=== PATIENT | female | born 1935 | race Caucasian/White ===

== ENCOUNTER 2017-08-30 18:19 | Emergency (ER) | payer OTHER ==
[2017-08-30 18:29] VITALS: BP 155/107; PULSE 87; TEMP 97.6; BMI 23.6
--- NOTE | 2017-08-30 18:48 | PDOC ---
History of Present Illness - History of Present Illness Initial Comments: 08/30/17 18:56 The patient is an active 82 year old female, with a significant past medical history of broken left ankle (1 year ago), pelvic and collar bone fracture, who presents to the emergency department with left ankle injury. Patient states that she was getting up from the couch when her left ankle fell asleep, she started walking on it when she tripped and fell over. She states she heard a snapping noise. She states the pain is sharp, rates 6/10. She is able to ambulate. She denies recent fevers, chills, headache or dizziness. She denies recent nausea, vomit, diarrhea or constipation. She denies recent dysuria, frequency, urgency or hematuria. She denies recent chest pain or shortness of breath. Allergies: NKA Social history: Nonsmoker. Denies EtOH use and recreational drug use. <Meena Virgen - Last Filed: 08/30/17 19:02> <Manuel Armijo - Last Filed: 09/01/17 08:01> - General Chief Complaint: Injury Stated Complaint: LEFT ANKLE INJURY Time Seen by Provider: 08/30/17 18:48 Past History <Meena Virgen - Last Filed: 08/30/17 19:02> - Past Medical History COPD: No Other medical history: FRACTURE TO PELVIS,AND LEFT ANKLE - Suicide/Smoking/Psychosocial Hx Smoking History: Never smoked Information on smoking cessation initiated: No Hx Alcohol Use: No Drug/Substance Use Hx: No Substance Use Type: None <Manuel Armijo - Last Filed: 09/01/17 08:01> - Past Medical History Allergies/Adverse Reactions: Allergies Allergy/AdvReac Type Severity Reaction Status Date / Time No Known Allergies Allergy Verified 08/30/17 18:20 Home Medications: Ambulatory Orders NK [No Known Home Medication] 08/30/17 Review of Systems - Review of Systems Comments:: 08/30/17 18:57 CONSTITUTIONAL: Absent: fever, no chills, no fatigue EYES: Absent: visual changes ENT: Absent: ear pain, no sore throat CARDIOVASCULAR: Absent: chest pain, no palpitations RESPIRATORY: Absent: cough, no SOB GI: Absent: abdominal pain, no nausea, no vomiting, no constipation, no diarrhea GENITOURINARY: Absent: dysuria, no frequency, no hematuria MUSCULOSKELETAL: Present: left ankle pain Absent: back pain SKIN: Absent: rash <Meena Virgen - Last Filed: 08/30/17 19:02> *Physical Exam - Vital Signs Last Vital Signs Temp Pulse Resp BP Pulse Ox 97.6 F 87 18 155/107 99 08/30/17 18:20 08/30/17 18:20 08/30/17 18:20 08/30/17 18:20 08/30/17 18:20 - Physical Exam Comments: 08/30/17 19:02 GENERAL: Able to ambulate. Well-appearing, well-nourished. No apparent distress. HEENT: Normocephalic, atraumatic. PERRL, EOM intact. CARDIOVASCULAR: Normal S1, S2. Regular rate and rhythm. PULMONARY: Clear to auscultation bilaterally. ABDOMEN: Soft, non-distended, non-tender. EXTREMITIES: Mild swelling at lateral ligament of left ankle. No point tenderness of 5th metatarsal. No significant tenderness over malleli. Normal ROM in all four extremities. No gross deformities. SKIN: Warm, dry. No rash NEUROLOGICAL: No focal neurological deficits. <Meena Virgen - Last Filed: 08/30/17 19:02> - Vital Signs Last Vital Signs Temp Pulse Resp BP Pulse Ox 97.6 F 87 18 155/107 99 08/30/17 18:20 08/30/17 18:20 08/30/17 18:20 08/30/17 18:20 08/30/17 18:20 <Manuel Armijo - Last Filed: 09/01/17 08:01> Medical Decision Making - Medical Decision Making 09/01/17 08:00 X-rays negative except for minor soft tissue swelling. Examination showed no evidence of fracture. There is no point tenderness over the malleoli or fifth metatarsal, neurovascular was intact. Patient was ambulating well with only a slight suggestion of a limp. Ramos was applied, with no distal numbness or tingling and good toe motion, with good ambulation afterwards. Instructed to follow-up with orthopedics if pain or swelling persisted one-week. <Manuel Armijo - Last Filed: 09/01/17 08:01> *DC/Admit/Observation/Transfer - Attestations Scribe Attestion: 08/30/17 19:02 Documentation prepared by Meena Virgen, acting as medical assistant for Manuel Ag MD. <Meena Virgen - Last Filed: 08/30/17 19:02> - Discharge Dispostion Admit: No <Manuel Armijo - Last Filed: 09/01/17 08:01> Diagnosis at time of Disposition: Ankle sprain Qualifiers: Encounter type: initial encounter Involved ligament of ankle: tibiofibular ligament Laterality: left Qualified Code(s): S93.432A - Sprain of tibiofibular ligament of left ankle, initial encounter - Discharge Dispostion Disposition: HOME Condition at time of disposition: Stable - Referrals Referrals: Ramakrishna Abarca MD [Staff Physician] - 1 week - Patient Instructions Printed Discharge Instructions: DI for Ankle Sprain, How to Apply an Ramos Wrap Additional Instructions: Rest, ice, Ramos wrap, and Advil as needed. See orthopedist if pain or swelling persists one-week for further evaluation and treatment.
== END 2017-08-30 19:09 | disposition home or self-care (01) ==
LOC: FER 18:19
DX: S93.432A Sprain of tibiofibular ligament of left ankle, initial encounter (principal); W18.39XA Other fall on same level, initial encounter; Y93.89 Activity, other specified; Y92.9 Unspecified place or not applicable
CPT/HCPCS: 73610-TC-LT; 99281-25

== ENCOUNTER 2020-05-10 11:04 | Emergency (ER) | payer OTHER ==
[2020-05-10 11:09] VITALS: BP 157/92; PULSE 79; TEMP 98.1; BMI 22.9
[2020-05-10] MEDS ORDERED: ACETAMINOPHEN 325 MG TABLET (FP) PO ONE (11:18)
[2020-05-10] MEDS ORDERED: LIDOCAINE 5% TOPICAL PATCH TP ONE (11:18)
--- NOTE | 2020-05-10 11:18 | PDOC ---
History of Present Illness - General Chief Complaint: Rash Stated Complaint: RASH Time Seen by Provider: 05/10/20 11:11 History Source: Patient Exam Limitations: No Limitations - History of Present Illness Initial Comments: 05/10/20 11:21 HPI 85 YOF with h/o HTN, presenting with left sided axilla/lateral chest wall burning rash x 1 week. Pt describes the rash as painful, like "bee stings" that is nonexertional. Associated with sharp burning pain her left inner arm as well. had shingles shot 6 years ago. she had covid 19 and has donated convalescent plasma. no trauma. no insect stings. no infectious sx. Denies fever, chills, chest pain, SOB, palpitation, dizziness, weakness, N, V, D, abdominal pain, bladder and bowel problems, focal weakness/paresthesias, leg swelling/pain, rash. No sick contacts or travel. No new changes in medications. No suspicious food intake Allergies: None Past Medical History: HTN Social history: No tobacco, ETOH or drug use. Meds: olmesartan Family history: noncontributory PMD: Dr Campoverde Review of systems Constitutional: no fevers or chills. No weakness HEENT: no headache or dizziness. No congestion. No visual/hearing disturbances. CVS: no cp or syncope. Resp: no sob. No cough. Gastrointestinal: no abdominal pain, nausea, vomiting, diarrhea. Genitourinary: no urinary sx, hematuria. MUSCULOSKELETAL: No joint pain and swelling. No neck or back pain. SKIN: No wounds. +rash. Hematologic: no easy bruising/bleeding. NEUROLOGIC: No headache, dizziness, LOC or altered mental status. No weakness, numbness or tingling. Psych: no anxiety or depression Allergic/Immunologic: no allergies All other systems reviewed and negative, or as documented in HPI. Physical exam General: Well appearing, awake and alert, NAD. HEENT: NCAT, PERRL, EOMI, clear conjunctiva, anicteric, moist mucus membranes, clear oropharynx, no oral lesions.. Neck: neck supple, FROM Resp: CTAB, normal and even respirations, no respiratory distress CVS: RRR, no murmurs, 2+ peripheral pulses throughout, no peripheral edema Chest wall: left lateral /axilla small irregularly bordered erythematous vesicular rash. Abdomen: soft, NTND, no rebound or guarding. Back: nontender, normal inspection and ROM MSK: no edema, HERNANDEZ x4, ROM intact. No clubbing or cyanosis. normal bulk and tone. Extremities: no calf tenderness Neuro: alert, oriented appropriately; no focal neurologic deficits Psych: Calm and cooperative Skin: warm and well perfused, cap refill <2 sec, normal color. left lateral /axilla small irregularly bordered erythematous vesicular rash. 05/10/20 11:21 Past History - Medical History Allergies/Adverse Reactions: Allergies Allergy/AdvReac Type Severity Reaction Status Date / Time No Known Allergies Allergy Verified 05/10/20 11:05 Home Medications: Ambulatory Orders Lidocaine 5% Patch [Lidoderm Patch -] 1 patch TP DAILY #7 patch 05/10/20 Olmesartan Medoxomil 20 mg PO DAILY 05/10/20 Valacyclovir HCl [Valacyclovir] 1,000 mg PO TID #21 tablet 05/10/20 COPD: No HTN: Yes - Reproductive History Is Patient Now?: No - Psycho-Social/Smoking History Smoking History: Never smoked Have you smoked in the past 12 months: No Information on smoking cessation initiated: No - Substance Abuse Hx (Audit-C & DAST Scrn) How often the patient has a drink containing alcohol: Never Score: In Men: 4 or > Positive; In Women: 3 or > Positive: 0 Screen Result (Pos requires Nsg. Audit-10AR): Negative In the last yr the pt used illegal drug/Rx for NonMed reason: No Score: Yes response is considered Positive: 0 Screen Result (Positive result requires Nsg. DAST-10): Negative *Physical Exam - Vital Signs Last Vital Signs Temp Pulse Resp BP Pulse Ox 98.1 F 79 18 157/92 98 05/10/20 11:04 05/10/20 11:04 05/10/20 11:04 05/10/20 11:04 05/10/20 11:04 Medical Decision Making - Medical Decision Making 05/10/20 11:24 Vital Signs Temp Pulse Resp BP Pulse Ox 98.1 F 79 18 157/92 98 05/10/20 11:04 05/10/20 11:04 05/10/20 11:04 05/10/20 11:04 08/30/20 11:04 vitals reviewed wnl pt with characteristic vescular rash to her left lateral chest wall adj to axilla does not appear crusting yet no rash to her left inner arm, likely radicular/neuropathic pain no typical sx to suggest ACS or cardiopulm etiology no systemic findings will treat with valcyclovir x 7 day course analgesia regimen PCP followup, return precautions instructions on contact precautions, avoid contact with , immunocompromised individuals given risk of spreading hsv. Discharge - Discharge Information Problems reviewed: Yes Clinical Impression/Diagnosis: Shingles rash Qualifiers: Herpes zoster complications: without complications Qualified Code(s): B02.9 - Zoster without complications Condition: Stable Disposition: HOME - Admission No - Additional Discharge Information Prescriptions: Lidocaine 5% Patch [Lidoderm Patch -] 1 patch TP DAILY #7 patch Valacyclovir HCl [Valacyclovir] 1,000 mg PO TID #21 tablet - Follow up/Referral Referrals: Krystian Campoverde MD [Primary Care Provider] - - Patient Discharge Instructions Patient Printed Discharge Instructions: Shingles (Herpes Zoster) (Alternative Therapy), DI for Shingles - Post Discharge Activity
[2020-05-10] MEDS ORDERED: LIDOCAINE 5% TOPICAL PATCH ONE (11:25)
[2020-05-10] MEDS ORDERED: ACETAMINOPHEN 325 MG TABLET (FP) ONE (11:25)
== END 2020-05-10 11:37 | disposition home or self-care (01) ==
LOC: FER 11:04
DX: B02.9 Zoster without complications (principal)
CPT/HCPCS: 99283-25

== ENCOUNTER 2023-12-15 10:20 | Emergency (ER) | payer OTHER ==
[2023-12-15 10:38] VITALS: BP 150/99; PULSE 75; RESP 18; TEMP 97.9; BMI 22.1
[2023-12-15] MEDS ORDERED: KETOROLAC TROMETHAMINE 30 MG/1 ML VIAL ONE (10:40)
[2023-12-15] MEDS: KETOROLAC TROMETHAMINE 30 MG/1 ML VIAL IM ONE (10:45)
== END 2023-12-15 11:42 | disposition home or self-care (01) ==
LOC: FER 10:20
DX: S76.911A Strain of unspecified muscles, fascia and tendons at thigh level, right thigh, initial encounter (principal); M79.651 Pain in right thigh; X58.XXXA Exposure to other specified factors, initial encounter
CPT/HCPCS: 73502-TC-RT-FY; 73552-TC-RT-FY; 99283-25